=== PATIENT | male | born 1995 | race African-American/Black ===

== ENCOUNTER 2018-09-28 13:39 | Emergency (ER) | payer MEDICAID ==
[~2018-09-28] VITALS: Ht 177.8 cm; Wt 59.0 kg
[~2018-09-28 13:39] MED LIST: BACITRACIN15 GM TP; IBUPROFEN600 MG ORAL; NORCO 5-325 TA1 EACH ORAL; PROAIR HFA8.5 GM INH; TRAMADOL HCL50 MG ORAL; ZITHROMAX250 MG ORAL
[2018-09-28] MEDS ORDERED: NKM (13:54)
[2018-09-28 14:02] VITALS: BP 109/70
--- NOTE | 2018-09-28 14:04 | NUR ---
ED Nurse Note: Patient ambulated in to ER from home due to Rt ankle pain 09/03. Patient is alert and oriented x 4 and ambulatory. Skin clean and intact. Calm and cooperative. No acute distress noted at this time.
[2018-09-28] MEDS ORDERED: IBUPROFEN600 MG ORAL (14:27)
[2018-09-28 14:50] VITALS: BP 124/79
--- NOTE | 2018-09-28 14:50 | NUR ---
ER DISCHARGE NOTE: Patient is cleared to be discharged per ERPA, pt is aox4, on room air, with stable vital signs. pt was given dc and prescription instructions, pt was able to verbalize understanding, pt id band removed. pt is able to ambulate with steady gait. pt took all belongings.
--- NOTE | 2018-09-28 16:13 | Emergency Room Report ---
History of Present Illness General Chief Complaint: Pain Source: Patient Present Illness HPI Patient is a 22-year-old male presenting for right ankle pain. He was seen in this emergency department 4 years prior for right ankle fracture. He was treated and told to follow-up with orthopedics for further evaluation. He states that he was seen by orthopedics and surgery was recommended. He declined surgery and a cast was placed. He states that pain has been continuous since the injury and is now a 7 out of 10 dull ache primarily to the medial side. Worse with movement such as walking. Denies any subsequent injury. He denies any other symptoms including numbness, tingling, rash, fever , chills Allergies: Coded Allergies: No Known Allergies (Unverified , 12/05/11) Patient History Past Medical History: see triage record Pertinent Family History: none Reviewed Nursing Documentation: PMH: Agreed; PSxH: Agreed Nursing Documentation-PMH Hx Cardiac Problems: No Hx Hypertension: No Hx Pacemaker: No Hx Asthma: No Hx COPD: No Hx Diabetes: No Hx Cancer: No Hx Gastrointestinal Problems: No Hx Dialysis: No Hx Neurological Problems: No Hx Cerebrovascular Accident: No Hx Seizures: No Review of Systems All Other Systems: negative except mentioned in HPI Physical Exam Vital Signs Date Time Temp Pulse Resp B/P (MAP) Pulse Ox O2 Delivery O2 Flow Rate FiO2 09/28/18 13:50 98.4 100 16 109/70 (83) 95 Room Air Sp02 EP Interpretation: reviewed, normal General Appearance: no apparent distress, alert, GCS 15, non-toxic Head: normocephalic, atraumatic Musculoskeletal: normal range of motion, no calf tenderness, tender - R medial ankle Neurologic: alert, oriented x3, responsive, motor strength/tone normal, sensory intact, speech normal Psychiatric: judgement/insight normal, memory normal, mood/affect normal, no suicidal/homicidal ideation Skin: no rash, warm/dry Medical Decision Making PA Attestation Dr. Rothman is my supervising physician. Patient management was discussed with my supervising physician Diagnostic Impression: Primary Impression: Ankle pain, right Qualified Codes: M25.571 - Pain in right ankle and joints of right foot; G89.29 - Other chronic pain ER Course Patient is a 22-year-old male with a previous right bimalleolar fracture presenting for continued right ankle pain. Ddx considered include but not limited to sprain/strain, fracture, contusion PE: Vitals stable. NAD Right ankle: No obvious deformity. Sensation is intact to light touch. There is tenderness to palpation over the medial malleolus. No ecchymosis. No edema R ankle xray shows old bi-mal fracture. No acute changes. RICE instructed. Motrin prescribed. F/U with PCP and ortho as discussed. ER precautions given Other X-Ray Diagnostic Results Other X-Ray Diagnostic Results : X-Ray ordered: R ankle # of Views/Limited Vs Complete: 3 View, Complete Indication: Pain EP Interpretation: Yes PA Xray: Interpretation reviewed, by supervising MD, and agrees with findings. Interpretation: no dislocation, no soft tissue swelling, no fractures Impression: No acute disease Electronically Signed by: Gee Maldonado PA-C Last Vital Signs Date Time Temp Pulse Resp B/P (MAP) Pulse Ox O2 Delivery O2 Flow Rate FiO2 09/28/18 14:50 98.1 86 16 124/79 100 Room Air Status: improved Disposition: HOME, SELF-CARE Condition: Improved Scripts Ibuprofen* (MOTRIN*) 600 Mg Tablet 600 MG ORAL Q8H PRN for For Pain, #30 TAB 0 Refills Prov: GEE MALDONADO 09/28/18 [facility] 24 hour /7 days a week by Appointment Only [address] [address] Patient Instructions: Ankle Pain Additional Instructions: I discussed my findings with the patient. All questions and concerns have been answered. Treatment and medication compliance have been addressed. I advised the patient that they need to follow up with PMD in 3-5 days. Return to ER if pain remains or worsens, numbness or tingling occurs, new rash is noticed, fever is noticed, or if needed for any reason. Patient verbalized understanding of discharge instructions. GEE MALDONADO Sep 28, 2018 16:13
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
== END 2018-09-28 14:50 | disposition home or self-care (01) ==
LOC: EMR 14:27
DX: M25.571 Pain in right ankle and joints of right foot (principal); G89.29 Other chronic pain
CPT/HCPCS: 99283

== ENCOUNTER 2019-01-30 17:24 | Emergency (ER) | payer MEDICAID ==
[~2019-01-30] VITALS: Ht 172.7 cm; Wt 63.5 kg
[~2019-01-30 17:24] MED LIST changes: +NKM
[2019-01-30 17:53] VITALS: BP 115/67
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
--- NOTE | 2019-01-30 17:53 | NUR ---
Note undone in EDM - 01/30/19 at 1922 by KERRY ED Nurse Note: Patient walked into ER due to dog bite to right middle finger. Per patient, patient trepassed other's house to pick his girlfriend's cell phone. Linear skin abraion on the right middle finger with dry blood noted. Patient unable to bend the affected finger, but cap refill < 3 sec and + sensation. Reports no fever or chills. Placed patient in bed. No facial grimacing or guarding noted.
[2019-01-30] MEDS ORDERED: Tetanus/Diptheria/Pertussis IM ONE (18:15)
--- NOTE | 2019-01-30 18:17 | Emergency Room Report ---
History of Present Illness General Chief Complaint: Animal Bite Source: Patient (Cristal Ibrahim) Present Illness HPI 23-year-old male with no significant past medical history here complaining of a dog bite on left middle finger that happened this morning. Patient reports that he was walking as he got attacked by a pit bull. Rating the pain 10 out of 10, reporting that has not taken medication for symptom relief. Denies tingling and numbness. Denies pain radiation. Reports that he is unable to bend his finger. Denies all other injuries, is not up-to-date with tetanus shot. No signs of penetration noted. (Cristal Ibrahim) Allergies: Coded Allergies: No Known Allergies (Unverified , 12/05/11) Patient History Past Medical History: see triage record Past Surgical History: unable to obtain Pertinent Family History: none Immunizations: other - tdap given today Reviewed Nursing Documentation: PMH: Agreed; PSxH: Agreed (Cristal Ibrahim) Nursing Documentation-PMH Past Medical History: No History, Except For Hx Cardiac Problems: No Hx Hypertension: No Hx Pacemaker: No Hx Asthma: Yes Hx COPD: No Hx Diabetes: No Hx Cancer: No Hx Gastrointestinal Problems: No Hx Dialysis: No Hx Neurological Problems: No Hx Cerebrovascular Accident: No Hx Seizures: No (Cristal Ibrahim) Review of Systems All Other Systems: negative except mentioned in HPI (Cristal Ibrahim) Physical Exam Vital Signs Date Time Temp Pulse Resp B/P (MAP) Pulse Ox O2 Delivery O2 Flow Rate FiO2 01/30/19 17:53 97.5 88 16 115/67 (83) 94 Room Air Sp02 EP Interpretation: reviewed, normal General Appearance: no apparent distress, alert, GCS 15, non-toxic Head: normocephalic, atraumatic Eyes: bilateral eye normal inspection, bilateral eye PERRL ENT: hearing grossly normal, normal pharynx, no angioedema, normal voice Neck: full range of motion, supple/symm/no masses Respiratory: chest non-tender, lungs clear, normal breath sounds, no rhonchi, no wheezing, speaking full sentences Cardiovascular #1: regular rate, rhythm, no edema, no murmur, normal capillary refill Cardiovascular #2: 2+ radial (R), 2+ radial (L) Gastrointestinal: normal bowel sounds, non tender, soft, non-distended, no guarding, no rebound Rectal: deferred Genitourinary: no CVA tenderness Musculoskeletal: back normal, normal range of motion, swelling - left middle finger with superficial bite Neurologic: alert, motor strength/tone normal, oriented x3, sensory intact, responsive, speech normal Psychiatric: judgement/insight normal, memory normal, mood/affect normal, no suicidal/homicidal ideation Skin: rash - dog bite, superficial on left middle finger Lymphatic: normal inspection, no adenopathy (Cristal Ibrahim) Procedures Splinting Splinting : Consent: Verbal Location: left middle finger Pre-Made Type: metal Pre-Proc Neuro Vasc Exam: normal Post-Proc Neuro Vasc Exam: normal Patient Tolerated: Well Complications: None (Cristal Ibrahim) Medical Decision Making PA Attestation All diagnoses and treatment plans were reviewed and discussed with my supervising physician Dr. Suarez (Cristal Ibrahim) Diagnostic Impression: Primary Impression: Dog bite of finger ER Course 23-year-old male with no significant past medical history here complaining of a dog bite on left middle finger that happened this morning. Patient reports that he was walking as he got attacked by a pit bull. Rating the pain 10 out of 10, reporting that has not taken medication for symptom relief. Denies tingling and numbness. Denies pain radiation. Reports that he is unable to bend his finger. Denies all other injuries, is not up-to-date with tetanus shot. No signs of penetration noted. Patient has no motor or neurological deficits and no sensory deficits Ddx considered but are not limited to : Cellulitis, penetrating trauma, superficial dog bite without foreign body, dog bite with foreign body Vital signs: are WNL, pt. is afebrile H&PE are most consistent with: Superficial dog bite without foreign body ORDERS: Finger x-ray, Augmentin, ibuprofen ED INTERVENTIONS: Wound clean and dressed, Tdap, metal splint DISCHARGE: At this time pt. is stable for d/c to home. Will provide printed patient care instructions, and any necessary prescriptions. Care plan and follow up instructions have been discussed with the patient prior to discharge. Patient to follow-up with her primary care provider, if worsening symptoms return to emergency room (Cristal Ibrahim) Other X-Ray Diagnostic Results Other X-Ray Diagnostic Results : X-Ray ordered: Left hand # of Views/Limited Vs Complete: 3 View Indication: Pain EP Interpretation: Yes PA Xray: Interpretation reviewed, by supervising MD, and agrees with findings. Interpretation: no dislocation, no soft tissue swelling, no fractures, other - No foreign body noted Impression: No acute disease Electronically Signed by: Cristal Saunders PA-C (Cristal Ibrahim) Other X-Ray Diagnostic Results : Electronically Signed by: Arabella Kim documentation of Xray reviewed by me and is accurate, Tee Suarez MD (Tee Suarez MD) Last Vital Signs Date Time Temp Pulse Resp B/P (MAP) Pulse Ox O2 Delivery O2 Flow Rate FiO2 01/30/19 17:53 97.5 88 16 115/67 (83) 94 Room Air (Cristal Ibrahim) Disposition: HOME, SELF-CARE Condition: Stable Scripts Acetaminophen* (ACETAMINOPHEN 325MG TABLET*) 325 Mg Tablet 650 MG ORAL Q6H PRN for For Pain, #30 TAB Prov: Cristal Ibrahim 01/30/19 Amoxicillin/Potassium Clav 875-125* (AUGMENTIN 875-125 TABLET*) 1 Each Tablet 1 TAB ORAL TWICE A DAY for 10 Days, #20 TAB Prov: Cristal Ibrahim 01/30/19 Patient Instructions: Animal Bite Additional Instructions: Take medication as directed, follow-up with your primary care provider, if worsening symptoms return to the emergency room. Cristal Ibrahim Jan 30, 2019 18:17 Tee Suarez MD Jan 31, 2019 06:25
[2019-01-30] MEDS ORDERED: AUGMENTIN 875-1 EAC1 ORAL (18:18)
[2019-01-30] MEDS ORDERED: ACETAMINOPHEN325 M1 ORAL (18:18)
--- NOTE | 2019-01-30 18:59 | Diagnostic Imaging Report ---
EXAM: XR Left Fingers, 2 or More Views CLINICAL HISTORY: FB TECHNIQUE: Frontal, lateral and oblique views of the fingers of the left hand. COMPARISON: No relevant prior studies available. FINDINGS: Bones/joints: No acute displaced fracture or dislocation. Soft tissues: No radiopaque foreign body. IMPRESSION: No radiopaque foreign body.
--- NOTE | 2019-01-30 19:18 | NUR ---
ER DISCHARGE NOTE: Patient is cleared to be discharged per ERMD. Patient is awake, alert, oriented x 4. D/C and prescription given. Patient verbalized understanding of it. ID band removed. Ambulated out with steady gait with all his belongingns. EMT applied finger splint/dressing on the left middle finger. Clean,dry dressing noted with cap refill < 3 sec, + sensation.
== END 2019-01-30 19:17 | disposition home or self-care (01) ==
LOC: EMR 18:33
DX: S61.253A Open bite of left middle finger without damage to nail, initial encounter (principal); J45.909 Unspecified asthma, uncomplicated; W54.0XXA Bitten by dog, initial encounter; Y93.01 Activity, walking, marching and hiking; Y92.9 Unspecified place or not applicable
CPT/HCPCS: 29130; 73140; 90471; 90715; Z7502; 99283

== ENCOUNTER 2020-01-06 16:54 | Emergency (ER) | payer MEDICAID ==
[~2020-01-06] VITALS: Ht 180.3 cm; Wt 72.6 kg
[~2020-01-06 16:54] MED LIST changes: +ACETAMINOPHEN325 M1 ORAL; +AUGMENTIN 875-1 EAC1 ORAL
[2020-01-06 17:12] VITALS: BP 144/86
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
[2020-01-06] MEDS ORDERED: FAMOTIDINE20 MG ORAL (18:10)
[2020-01-06 18:15] VITALS: BP 133/72
--- NOTE | 2020-01-06 18:15 | NUR ---
ED Nurse Note: Pt cleared by ERPA for discharge. DC instructions/prescription was given and explained to pt and verbalized understanding of teachings. All medical deviecs such as ID band removed. Pt is AAO x4, ambulatory and left with all personal belongings.
--- NOTE | 2020-01-07 15:58 | Diagnostic Imaging Report ---
Indication: Left knee pain Technique: 3 views of the left knee Comparison: None Findings: There is some prepatellar soft tissue swelling. No definite joint effusion. No acute fracture. No dislocations. Joint spaces are preserved. No radiopaque foreign body Impression: No acute bony trauma
== END 2020-01-06 18:15 | disposition home or self-care (01) ==
LOC: EMR 17:43
DX: R10.13 Epigastric pain (principal); S80.02XA Contusion of left knee, initial encounter; J45.909 Unspecified asthma, uncomplicated; V43.92XA Unspecified car occupant injured in collision with other type car in traffic accident, initial encounter; Y92.411 Interstate highway as the place of occurrence of the external cause
CPT/HCPCS: 73562; Z7502; 99283